=== PATIENT | male | born 1985 | race Asian ===

== ENCOUNTER 2024-02-04 03:05 | Observation (INO) | payer BC ==
--- NOTE | 2024-02-04 03:35 | XR ---
EXAMINATION TYPE: XR chest 2V DATE OF EXAM: 02/04/2024 CLINICAL HISTORY: Difficulty in breathing. TECHNIQUE: Frontal and lateral views of the chest are obtained. COMPARISON: None FINDINGS: There is no focal air space opacity, pleural effusion, or pneumothorax seen. The cardiac silhouette size is within normal limits. The osseous structures are intact. IMPRESSION: No acute cardiopulmonary process. [facility], , 02/04/2024 3:33 AM
[2024-02-04 03:37] LABS: Basophils % (A) 0 %; Eosinophils # (A) 0.2 k/uL (0-0.7); Eosinophils % (A) 2 %; HCT 46.3 % (39.0-53.0); HGB 15.7 gm/dL (13.0-17.5); Lymphocytes # (A) 1.2 k/uL (1.0-4.8); Lymphocytes % (A) 9 %; MCH 29.7 pg (25.0-35.0); MCV 87.4 fL (80.0-100.0); Mean Platelet Volume 6.7; Monocytes # (A) 0.5 k/uL (0-1.0); Monocytes % (A) 3 %; Neutrophils # (A) 11.4 k/uL (1.3-7.7); Neutrophils % (A) 85 %; Platelet Count 196 k/uL (150-450); WBC 13.4 k/uL (3.8-10.6)
--- NOTE | 2024-02-04 03:46 | ED ---
General Adult HPI - General Chief complaint: Shortness of Breath Stated complaint: SOB Time Seen by Provider: 02/04/24 03:21 Source: patient Mode of arrival: ambulatory Limitations: no limitations - History of Present Illness Initial comments: Patient is a 38-year-old male presenting today for cough, shortness of breath and pressure across his chest. Patient states that he was treated for pneumonia approximately 1 month ago and completed a 10-day course of antibiotics prescribed by an urgent care. When he began feeling short of breath today he measured his home pulse ox which was showing 88 to 90%. Endorses a nonproductive cough, no hemoptysis. Shortness of breath worsens with ambulation. Patient has no history of asthma, COPD and is a non-smoker. He has no other medical problems. No recent travel surgeries or hospitalizations. No history of cancer, does not take any medications every day. No history of CAD or prior PE/DVT. - Related Data Previous Rx's Medication Instructions Recorded Albuterol Inhaler [Ventolin Hfa 2 puff INHALATION QID PRN #8 gm 02/05/24 Inhaler] Famotidine [Pepcid] 20 mg PO DAILY #14 tablet 02/05/24 Levofloxacin [Levaquin] 750 mg PO DAILY 1 Days #5 tab 02/05/24 guaiFENesin [Mucinex] 1,200 mg PO Q12HR tab 02/05/24 predniSONE 10 mg PO DIRECTED #30 tab 02/05/24 Allergies Allergy/AdvReac Type Severity Reaction Status Date / Time No Known Allergies Allergy Verified 02/04/24 09:29 Review of Systems ROS Statement: Those systems with pertinent positive or pertinent negative responses have been documented in the HPI. ROS Other: All systems not noted in ROS Statement are negative. Past Medical History Past Medical History: No Reported History History of Any Multi-Drug Resistant Organisms: None Reported Past Surgical History: No Surgical Hx Reported Past Psychological History: No Psychological Hx Reported Smoking Status: Never smoker Past Alcohol Use History: Occasional Past Drug Use History: None Reported General Exam - General Exam Comments Initial Comments: PE: Exam is limited as patient was initially examined in ER waiting room due to bed shortage throughout emergency department secondary to boarding patients CONSTITUTIONAL: No apparent distress, somewhat ill-appearing, nontoxic SKIN: Warm, dry, no jaundice, hives or petechiae EYES: Pupils are equally round, extraocular movements intact without nystagmus, clear conjunctiva, non-icteric sclera HENT: Normocephalic, atraumatic, moist mucus membranes, oropharynx clear without exudates NECK: , Full range of motion, normal appearance PULMONARY: Scant rhonchi in the right lung base, otherwise clear to auscultation without wheezes, rales, normal excursion, no accessory muscle use and no stridor CARDIOVASCULAR: Tachycardia, regular rhythm normal S1 and S2. No appreciated murmurs, rubs or gallops. Extremities well-perfused no lower extremity edema GASTROINTESTINAL: Soft, active bowel sounds throughout, non-tender, non- distended, no palpable masses, no rebound or guarding. No hepatosplenomegaly MUSCULOSKELETAL: Extremities have no gross deformity, no edema, redness, or swelling. No calf swelling NEUROLOGIC:_a/o x 3, GCS 15, normal mentation and speech. Moves all extremities x 4 without motor or sensory deficit PSYCHIATRIC:_normal mood and affect, thought process is clear and linear Limitations: no limitations Course Vital Signs 02/04/24 02/04/24 02/04/24 03:10 03:38 04:17 Temperature 99.9 F H Pulse Rate 129 H 112 H Pulse Rate [ Battery Charger Tester ] Respiratory 18 18 Rate Blood Pressure 138/77 130/85 Blood Pressure [Left Arm] O2 Sat by Pulse 92 L 97 95 Oximetry 02/04/24 02/04/24 02/04/24 04:19 10:41 11:28 Temperature 99.5 F Pulse Rate 110 H 98 Pulse Rate [ Battery Charger Tester ] Respiratory 18 20 Rate Blood Pressure 115/77 Blood Pressure [Left Arm] O2 Sat by Pulse 94 L 93 L Oximetry 02/04/24 02/04/24 02/04/24 11:41 15:49 15:52 Temperature 98.4 F Pulse Rate 96 104 H Pulse Rate [ Battery Charger Tester ] Respiratory 18 Rate Blood Pressure 104/50 Blood Pressure [Left Arm] O2 Sat by Pulse 91 L 95 Oximetry 02/04/24 02/04/24 02/04/24 16:41 16:51 17:06 Temperature Pulse Rate 104 H 102 H 106 H Pulse Rate [ Battery Charger Tester ] Respiratory 18 Rate Blood Pressure 104/50 Blood Pressure [Left Arm] O2 Sat by Pulse 94 L Oximetry 02/04/24 02/04/24 02/04/24 18:48 20:00 20:12 Temperature 98.1 F 99.1 F Pulse Rate 105 H 100 Pulse Rate [ 104 H Battery Charger Tester ] Respiratory 18 18 Rate Blood Pressure 117/79 Blood Pressure 100/58 [Left Arm] O2 Sat by Pulse 93 L 95 Oximetry 02/04/24 20:23 Temperature Pulse Rate 109 H Pulse Rate [ Battery Charger Tester ] Respiratory Rate Blood Pressure Blood Pressure [Left Arm] O2 Sat by Pulse Oximetry EKG Findings - EKG Comments: EKG Findings:: Sinus tachycardia, rate 135 bpm, MD interval 162 ms, QRS duration 94 ms, QT/QTc 297/376 ms, borderline left axis deviation, no clear ST elevations or depressions, no arrhythmia Medical Decision Making - Medical Decision Making Was pt. sent in by a medical professional or institution (, PA, [facility]AKER BREAD, urgent care, hospital, or long term...) When possible be specific @ -No Did you speak to anyone other than the patient for history (EMS, parent, family, police, friend...)? What history was obtained from this source @ -No Did you review nursing and triage notes (agree or disagree)? Why? @ -I reviewed and agree with nursing and triage notes Were old charts reviewed (outside hosp., previous admission, EMS record, old EKG, old radiological studies, urgent care reports/EKG's, long term records)? Report findings @Medical records reviewed-no recent visits or imaging noted on chart review Differential Diagnosis (chest pain, altered mental status, abdominal pain women, abdominal pain men, vaginal bleeding, weakness, fever, dyspnea, syncope, headache, dizziness, GI bleed, back pain, seizure, CVA, palpatations, mental health, musculoskeletal)? @Differential Dyspnea: Coronary syndrome, arrhythmia, tamponade, asthma, COPD, pulmonary embolism, pneumonia, pneumothorax, pulmonary effusion, diabetic ketoacidosis, anemia, neuromuscular, this is not meant to be an all-inclusive list. EKG interpreted by me (3pts min.). @ -As above X-rays interpreted by me (1pt min.). @No cardiomegaly, pleural effusions, gross consolidations, no pneumothorax CT interpreted by me (1pt min.). @No massive or submassive PE U/S interpreted by me (1pt. min.). @ -None done What testing was considered but not performed or refused? (CT, X-rays, U/S, lab s)? Why? @ -None What meds were considered but not given or refused? Why? @ -None Did you discuss the management of the patient with other professionals (professionals i.e. , PA, BAKER BREAD, lab, RT, psych nurse, social work coordinator, cork cutter, teacher, deputy probation officer, case specialist)? Give summary @ -No Was smoking cessation discussed for >3mins.? @ -No Was critical care preformed (if so, how long)? @ -No Were there social determinants of health that impacted care today? How? (Homelessness, low income, unemployed, alcoholism, drug addiction, transportation, low edu. Level, literacy, decrease access to med. care, penitentiary, rehab)? @ -No Was there de-escalation of care discussed even if they declined (Discuss DNR or withdrawal of care, Hospice)? @ -No What co-morbidities impacted this encounter? (DM, HTN, Smoking, COPD, CAD, Cancer, CVA, ARF, Chemo, Hep., AIDS, mental health diagnosis, sleep apnea, morbid obesity)? @ -None Was patient admitted / discharged? Hospital course, mention meds given and route, prescriptions, significant lab abnormalities, going to OR and other pertinent info. @ -Admission- This is a pleasant 38-year-old gentleman with no significant medical history presenting today for shortness of breath, pressure across the front of his chest and home pulse ox 88 to 90% this evening with associated nonproductive cough. Patient initially seen and assessed in the waiting room due to emergency departments beds full of boarding patients. On my assessment patient is resting comfortably no acute distress, is nontoxic appearing, mildly ill-appearing. No respiratory distress or tachypnea noted. Patient was agreeable and comfortable with history and performing initial exam in the waiting room. Patient tachycardic on arrival with heart rate 129, oral temp 99.9 F, respiratory rate 18, pulse ox 92% on room air blood pressure 138/77. I had patient ambulate with a continuous pulse ox and after about 6-10 steps his pulse ox did decrease to 89% on room air. Patient was placed on oxygen by nasal cannula. Plan for comprehensive labs, including D-dimer given patient's tachycardia and hypoxemia, EKG, IV fluids Rocephin, azithromycin, Toradol and Tylenol for borderline fever, aspirin for patient's chest pressure however I suspect this is more likely secondary to pneumonia as opposed to ACS. D-dimer positive, CT PE study showed lingular infiltrate no PE. Patient was ambulated by RN with pulse ox 88% with ambulation, pulse ox 96% at rest on room air. Due to hypoxia with ambulation patient will need to be admitted for observation. I discussed this with patient and he is agreeable with plan. Case discussed with Dr. Brito who kindly accepted patient for admission. P atient admitted in stable condition Undiagnosed new problem with uncertain prognosis? @ -No Drug Therapy requiring intensive monitoring for toxicity (Heparin, Nitro, Insulin, Cardizem)? @ -No Were any procedures done? @ -No Diagnosis/symptom? @Community-acquired pneumonia Acute, or Chronic, or Acute on Chronic? @Acute Uncomplicated (without systemic symptoms) or Complicated (systemic symptoms)? @Complicated Side effects of treatment? @ -No Exacerbation, Progression, or Severe Exacerbation? @ -No Poses a threat to life or bodily function? How? (Chest pain, [place], [place], pneumonia, PE, COPD, DKA, ARF, appy, cholecystitis, CVA, Diverticulitis, Homicidal, Suicidal, threat to staff... and all critical care pts) @ -Yes, patient hypoxemic 2/2 pneumonia so if left untreated could progress to fulminant respiratory failure, sepsis or septic shock. - Lab Data Result diagrams: 02/04/24 03:26 02/04/24 03:26 Lab Results 02/04/24 02/04/24 02/04/24 Range/Units 03:26 03:26 03:26 WBC 13.4 H (3.8-10.6) k/uL RBC 5.30 (4.30-5.90) m/uL Hgb 15.7 (13.0-17.5) gm/dL Hct 46.3 (39.0-53.0) % MCV 87.4 (80.0-100.0) fL MCH 29.7 (25.0-35.0) pg MCHC 34.0 (31.0-37.0) g/dL RDW 12.0 (11.5-15.5) % Plt Count 196 (150-450) k/uL MPV 6.7 Neutrophils % 85 % Lymphocytes % 9 % Monocytes % 3 % Eosinophils % 2 % Basophils % 0 % Neutrophils # 11.4 H (1.3-7.7) k/uL Lymphocytes # 1.2 (1.0-4.8) k/uL Monocytes # 0.5 (0-1.0) k/uL Eosinophils # 0.2 (0-0.7) k/uL Basophils # 0.0 (0-0.2) k/uL PT 10.8 (10.0-12.5) sec INR 1.0 (<1.2) APTT 24.2 (22.0-30.0) sec D-Dimer 0.23 (<0.60) mg/L FEU Sodium 137 (137-145) mmol/L Potassium 4.5 (3.5-5.1) mmol/L Chloride 105 (98-107) mmol/L Carbon Dioxide 18 L (22-30) mmol/L Anion Gap 14 mmol/L BUN 19 (9-20) mg/dL Creatinine 1.19 (0.66-1.25) mg/dL Est GFR (CKD-EPI)AfAm 89 (>60 ml/min/1.73 sqM) Est GFR (CKD-EPI)NonAf 77 (>60 ml/min/1.73 sqM) Glucose 127 H (74-99) mg/dL Plasma Lactic Acid Luis (0.7-2.0) mmol/L Calcium 9.5 (8.4-10.2) mg/dL Total Bilirubin 1.0 (0.2-1.3) mg/dL AST 26 (17-59) U/L ALT 30 (4-49) U/L Alkaline Phosphatase 66 (38-126) U/L Troponin I (0.000-0.034) ng/mL NT-Pro-B Natriuret Pep pg/mL Total Protein 7.9 (6.3-8.2) g/dL Albumin 4.9 (3.5-5.0) g/dL Influenza Type A (PCR) (Not Detectd) Influenza Type B (PCR) (Not Detectd) RSV (PCR) (Not Detectd) SARS-CoV-2 (PCR) (Not Detectd) 02/04/24 02/04/24 02/04/24 Range/Units 03:26 03:26 03:51 WBC (3.8-10.6) k/uL RBC (4.30-5.90) m/uL Hgb (13.0-17.5) gm/dL Hct (39.0-53.0) % MCV (80.0-100.0) fL MCH (25.0-35.0) pg MCHC (31.0-37.0) g/dL RDW (11.5-15.5) % Plt Count (150-450) k/uL MPV Neutrophils % % Lymphocytes % % Monocytes % % Eosinophils % % Basophils % % Neutrophils # (1.3-7.7) k/uL Lymphocytes # (1.0-4.8) k/uL Monocytes # (0-1.0) k/uL Eosinophils # (0-0.7) k/uL Basophils # (0-0.2) k/uL PT (10.0-12.5) sec INR (<1.2) APTT (22.0-30.0) sec D-Dimer (<0.60) mg/L FEU Sodium (137-145) mmol/L Potassium (3.5-5.1) mmol/L Chloride (98-107) mmol/L Carbon Dioxide (22-30) mmol/L Anion Gap mmol/L BUN (9-20) mg/dL Creatinine (0.66-1.25) mg/dL Est GFR (CKD-EPI)AfAm (>60 ml/min/1.73 sqM) Est GFR (CKD-EPI)NonAf (>60 ml/min/1.73 sqM) Glucose (74-99) mg/dL Plasma Lactic Acid Luis 1.7 (0.7-2.0) mmol/L Calcium (8.4-10.2) mg/dL Total Bilirubin (0.2-1.3) mg/dL AST (17-59) U/L ALT (4-49) U/L Alkaline Phosphatase (38-126) U/L Troponin I <0.012 (0.000-0.034) ng/mL NT-Pro-B Natriuret Pep <20 pg/mL Total Protein (6.3-8.2) g/dL Albumin (3.5-5.0) g/dL Influenza Type A (PCR) (Not Detectd) Influenza Type B (PCR) (Not Detectd) RSV (PCR) (Not Detectd) SARS-CoV-2 (PCR) (Not Detectd) 02/04/24 Range/Units 03:52 WBC (3.8-10.6) k/uL RBC (4.30-5.90) m/uL Hgb (13.0-17.5) gm/dL Hct (39.0-53.0) % MCV (80.0-100.0) fL MCH (25.0-35.0) pg MCHC (31.0-37.0) g/dL RDW (11.5-15.5) % Plt Count (150-450) k/uL MPV Neutrophils % % Lymphocytes % % Monocytes % % Eosinophils % % Basophils % % Neutrophils # (1.3-7.7) k/uL Lymphocytes # (1.0-4.8) k/uL Monocytes # (0-1.0) k/uL Eosinophils # (0-0.7) k/uL Basophils # (0-0.2) k/uL PT (10.0-12.5) sec INR (<1.2) APTT (22.0-30.0) sec D-Dimer (<0.60) mg/L FEU Sodium (137-145) mmol/L Potassium (3.5-5.1) mmol/L Chloride (98-107) mmol/L Carbon Dioxide (22-30) mmol/L Anion Gap mmol/L BUN (9-20) mg/dL Creatinine (0.66-1.25) mg/dL Est GFR (CKD-EPI)AfAm (>60 ml/min/1.73 sqM) Est GFR (CKD-EPI)NonAf (>60 ml/min/1.73 sqM) Glucose (74-99) mg/dL Plasma Lactic Acid Luis (0.7-2.0) mmol/L Calcium (8.4-10.2) mg/dL Total Bilirubin (0.2-1.3) mg/dL AST (17-59) U/L ALT (4-49) U/L Alkaline Phosphatase (38-126) U/L Troponin I (0.000-0.034) ng/mL NT-Pro-B Natriuret Pep pg/mL Total Protein (6.3-8.2) g/dL Albumin (3.5-5.0) g/dL Influenza Type A (PCR) Not Detected (Not Detectd) Influenza Type B (PCR) Not Detected (Not Detectd) RSV (PCR) Not Detected (Not Detectd) SARS-CoV-2 (PCR) Not Detected (Not Detectd) Disposition Clinical Impression: Community acquired bacterial pneumonia Disposition: ADMITTED IP TO THIS HOSP Condition: Stable
[2024-02-04 03:48] LABS: ALT 30 U/L (4-49); AST 26 U/L (17-59); African American GFR (CKD) 89 (>60 ml/min/1.73 sqM); Albumin 4.9 g/dL (3.5-5.0); Alkaline Phosphatase 66 U/L (38-126); Anion Gap 14 mmol/L; Blood Urea Nitrogen 19 mg/dL (9-20); Calcium 9.5 mg/dL (8.4-10.2); Carbon Dioxide 18 mmol/L (22-30); Chloride 105 mmol/L (98-107); Glucose 127 mg/dL (74-99); Non-African American GFR(CKD) 77 (>60 ml/min/1.73 sqM); Potassium 4.5 mmol/L (3.5-5.1); Sodium 137 mmol/L (137-145); Total Protein 7.9 g/dL (6.3-8.2)
[2024-02-04 03:51] LABS: Partial Thromboplastin Time 24.2 sec (22.0-30.0); Prothrombin Time 10.8 sec (10.0-12.5)
[2024-02-04] MEDS: SODIUM CHLORIDE 0.9% 1,000 ML IV STA (03:53)
[2024-02-04] MEDS: ASPIRIN 81 MG PO STA (04:21)
[2024-02-04] MEDS: ACETAMINOPHEN TAB 500 MG TAB PO STA (04:21)
[2024-02-04] MEDS: KETOROLAC 15 MG/ML 1 ML VIAL IVP STA (04:22)
--- NOTE | 2024-02-04 04:29 | CT ---
EXAMINATION TYPE: CT chest angio for PE DATE OF EXAM: 02/04/2024 COMPARISON: NONE HISTORY: hypoxia, tachycardia, recent PNA CT DLP: 529.9 mGycm. Automated Exposure Control for Dose Reduction was Utilized. CONTRAST: CTA scan of the thorax is performed with IV Contrast, patient injected with 88ML mL of Isovue 370, pu lmonary embolism protocol. MIP Images are created on CT scanner and reviewed. FINDINGS: LUNGS: Suboptimal with motion artifact. This limits evaluation particularly for subcentimeter nodules . Focal groundglass opacity in the lingula. Right lung is clear. No pleural effusion or pneumothorax seen bilaterally. MEDIASTINUM: Suboptimal study with most dense contrast in SVC. No convincing CT evidence for acute pu lmonary embolism. There is enhancement of the aorta without aneurysm or dissection. No cardiomegaly o r pericardial effusion. OTHER: No additional significant abnormality is seen. IMPRESSION: 1. Suboptimal study without CT evidence for acute pulmonary embolism. 2. There is lingular acute infiltrate and/or atelectasis noted. [facility], , 02/04/2024 4:26 AM
[2024-02-04] MEDS: AZITHROMYCIN 500 MG in SODIUM CHLORIDE 0.9% 250 ML IVPB STA (04:56)
[2024-02-04] MEDS ORDERED: NALOXONE 0.4 MG/ML 1 ML VIAL IV PRN (08:31)
[2024-02-04] MEDS ORDERED: ACETAMINOPHEN TAB 325 MG TAB PO PRN (08:31)
[2024-02-04] MEDS ORDERED: IBUPROFEN 400 MG TAB PO PRN (08:31)
[2024-02-04] MEDS ORDERED: KETOROLAC 15 MG/ML 1 ML VIAL IVP PRN (08:31)
[2024-02-04] MEDS: SODIUM CHLORIDE 0.9% 1,000 ML IV SCH (09:30)
[2024-02-04] MEDS ORDERED: IPRATROPIUM-ALBUTEROL 3 ML NEB INHALATION PRN (09:51)
[2024-02-04] MEDS: methylPREDNISolone SOD SUCCI 125 MG/2 ML VIAL IV STA (10:31)
[2024-02-04] MEDS: guaiFENesin 600 MG TABLET.ER PO SCH (10:31)
[2024-02-04] MEDS: PANTOPRAZOLE 40 MG/10 ML VIAL IVP SCH (10:32)
[2024-02-04] MEDS: IPRATROPIUM-ALBUTEROL 3 ML NEB INHALATION SCH (11:28)
[2024-02-04] MEDS: methylPREDNISolone SOD SUCCI 125 MG/2 ML VIAL IV SCH (15:54)
[2024-02-05 08:08] VITALS: RESP 16
[2024-02-05] MEDS: AZITHROMYCIN 500 MG TAB PO STA (13:07)
--- NOTE | 2024-02-05 13:20 | P.HPIM ---
History of Present Illness H&P Date: 02/04/24 Chief Complaint: Shortness of breath This is a 38-year-old gentleman medical history of pneumonia 1 month ago, completed 10 days of antibiotics. Presented to the ER with complaints of shortness of breath, O2 sat of 88 to 90% at home, nonproductive cough with thick sputum. Tmax 99.9, WBC 13.4. Hemoglobin 15.7, platelets 196, D-dimer 0.23. Electrolytes within normal limits. Bicarb 18, BUN 19, creatinine 1.19., Glucose 127. Lactic acid 1.7. Chest x-ray reported No acute cardiopulmonary process. Chest CT reported suboptimal study without CT evidence for acute PE. There is lingular acute infiltrate and/or atelectasis noted. EKG reported sinus tach, sinus rhythm. Review of Systems ROS Statement: Those systems with pertinent positive or pertinent negative responses have been documented in the HPI. ROS Other: All systems not noted in ROS Statement are negative. Past Medical History Past Medical History: No Reported History History of Any Multi-Drug Resistant Organisms: None Reported Past Surgical History: No Surgical Hx Reported Past Psychological History: No Psychological Hx Reported Smoking Status: Never smoker Past Alcohol Use History: Occasional Past Drug Use History: None Reported Medications and Allergies Home Medications Medication Instructions Recorded Confirmed Type Albuterol Inhaler [Ventolin Hfa 2 puff INHALATION QID PRN #8 gm 02/05/24 Rx Inhaler] Famotidine [Pepcid] 20 mg PO DAILY #14 tablet 02/05/24 Rx Levofloxacin [Levaquin] 750 mg PO DAILY 1 Days #5 tab 02/05/24 Rx guaiFENesin [Mucinex] 1,200 mg PO Q12HR tab 02/05/24 Rx predniSONE 10 mg PO DIRECTED #30 tab 02/05/24 Rx Allergies Allergy/AdvReac Type Severity Reaction Status Date / Time No Known Allergies Allergy Verified 02/04/24 09:29 Physical Exam Vitals: Vital Signs Temp Pulse Resp BP Pulse Ox 02/04/24 11:41 96 02/04/24 11:28 98 93 L 02/04/24 10:41 99.5 F 110 H 20 115/77 94 L 02/04/24 04:19 18 02/04/24 04:17 112 H 18 130/85 95 02/04/24 03:38 97 02/04/24 03:10 99.9 F H 129 H 18 138/77 92 L Intake and Output 02/03/24 02/04/24 02/04/24 22:59 06:59 14:59 Other: Weight 99.79 kg PHYSICAL EXAM: VITAL SIGNS: [Reviewed] GENERAL: And oriented x 3, standing up by stretcher, no acute distress HEENT: Normocephalic, atraumatic conjunctivae normal. eyes normal. NECK: Supple, no JVD. No thyroid enlargement. No LNs CARDIOVASCULAR: S1, S2 regular. No murmur RESPIRATION: Unlabored, equal air entry, scattered rhonchi breath sounds diminished in the bases. ABDOMEN: Soft, nontender . No guarding. no masses palpable. No ascites, No hepatosplenomegaly.Bowel sounds heard. LEGS: No edema. no swelling NERVOUS SYSTEM: Cranial N 2-12 grossly normal. No focal deficits. Strength and sensation grossly intact. Skin: Warm and dry, no rash Results CBC & Chem 7: 02/04/24 03:26 02/04/24 03:26 Labs: Abnormal Lab Results - Last 24 Hours (Table) 02/04/24 02/04/24 Range/Units 03:26 03:26 WBC 13.4 H (3.8-10.6) k/uL Neutrophils # 11.4 H (1.3-7.7) k/uL Carbon Dioxide 18 L (22-30) mmol/L Glucose 127 H (74-99) mg/dL Assessment and Plan Assessment: Community-acquired pneumonia, in a patient with recent pneumonia 1 month ago Possibly walking pneumonia, serum mycoplasma ordered Acute hypoxic respiratory failure secondary to the above Leukocytosis secondary to the above Obesity, BMI 31 Plan: Continue on current medication regimen ,monitoring and symptomatic treatment. Maintain antibiotics, steroids, nebulized bronchodilators, guaifenesin. Discharge planning in progress for later today pending mycoplasma results. The impression and plan of care has been dictated as directed. : I performed a history and examination of this patient, discussed the same with the dictator. I agree with the dictator's note ,documented as a scribe. Any additional findings or plans will be noted.
--- NOTE | 2024-02-05 13:23 | P.DS ---
Providers Date of admission: 02/04/24 08:31 Expected date of discharge: 02/05/24 Attending physician: Noe Brito Primary care physician: [facility] Course: Final diagnoses Community-acquired pneumonia, in a patient with recent pneumonia 1 month ago Possibly walking pneumonia, serum mycoplasma pending Acute hypoxic respiratory failure secondary to the above, resolved, maintaining O2 sats in the low 90s on room air. Leukocytosis secondary to the above Obesity, BMI 31 Hospital course:This is a 38-year-old gentleman medical history of pneumonia 1 month ago, completed 10 days of antibiotics. Presented to the ER with com plaints of shortness of breath, O2 sat of 88 to 90% at home, nonproductive cough with thick sputum. Tmax 99.9, WBC 13.4. Hemoglobin 15.7, platelets 196, D- dimer 0.23. Electrolytes within normal limits. Bicarb 18, BUN 19, creatinine 1.19., Glucose 127. Lactic acid 1.7. Chest x-ray reported No acute cardiopulmonary process. Chest CT reported suboptimal study without CT evidence for acute PE. There is lingular acute infiltrate and/or atelectasis noted. EKG reported sinus tach, sinus rhythm. Maintained on antibiotics, steroids, nebulized bronchodilators, guaifenesin. mycoplasma results pending, to be faxed to PCPs office. Patient will be discharged home today in a stable condition with guarded prognosis. The impression and plan of care has been dictated as directed. : I performed a history and examination of this patient, discussed the same with the dictator. I agree with the dictator's note ,documented as a scribe. Any additional findings or plans will be noted. Patient Condition at Discharge: Stable Plan - Discharge Summary Discharge Rx Participant: No New Discharge Prescriptions: New Levofloxacin [Levaquin] 750 mg PO DAILY 1 Days #5 tab guaiFENesin [Mucinex] 1,200 mg PO Q12HR tab Famotidine [Pepcid] 20 mg PO DAILY #14 tablet predniSONE 10 mg PO DIRECTED #30 tab Albuterol Inhaler [Ventolin Hfa Inhaler] 2 puff INHALATION QID PRN #8 gm PRN Reason: Shortness Of Breath Discharge Medication List Albuterol Inhaler [Ventolin Hfa Inhaler] 2 puff INHALATION QID PRN #8 gm 12/17/24 [Rx] Famotidine [Pepcid] 20 mg PO DAILY #14 tablet 02/05/24 [Rx] Levofloxacin [Levaquin] 750 mg PO DAILY 1 Days #5 tab 02/05/24 [Rx] guaiFENesin [Mucinex] 1,200 mg PO Q12HR tab 02/05/24 [Rx] predniSONE 10 mg PO DIRECTED #30 tab 02/05/24 [Rx] Follow up Appointment(s)/Referral(s): Noe Brito MD [STAFF PHYSICIAN] - 3 Days
[2024-02-05 13:33] VITALS: BP 114/55; PULSE 105; TEMP 97.6
[2024-02-06 04:38] LABS: Mycoplasma IgG Antibody (EIA) 0.78 INDEX (<=0.90); Mycoplasma IgM Antibody 0.23 INDEX (<=0.90)
[2024-02-06] MEDS ORDERED: predniSONE 50 MG TAB PO SCH (09:00)
== END 2024-02-05 15:45 | disposition home or self-care (01) ==
LOC: EC 03:05 → 6NMEDSUR 08:31 → 1SOBS 19:56
PROVIDERS: ADMIT Family Medicine; ATTEND Family Medicine
DX: J18.9 Pneumonia, unspecified organism (principal); J96.01 Acute respiratory failure with hypoxia; E66.9 Obesity, unspecified; Z68.31 Body mass index [BMI] 31.0-31.9, adult; Z87.01 Personal history of pneumonia (recurrent)
CPT/HCPCS: 96376 ×2; 96365; 96366; 96367; 96375; 99285; 36415; 94640 ×4; 94760; 93005; 85379; 86738 ×2; 83880; 80053; 83605; 84484; 85025; 85610; 85730; 87040; 87636; 71046; 71275; G0378 ×2; J0456; J0696 ×2; J1885; Q9967; J2919 ×2; J2470 ×2